=== PATIENT | female | born 1955 | race African-American/Black ===

== ENCOUNTER 2017-01-08 08:17 | Outpatient (CLI) | payer OTHER ==
--- NOTE | 2017-01-08 11:08 | Mammography Report ---
Screening mammogram: Patient with history of silicone injections into the breasts. Routine views demonstrate diffuse calcifications throughout both breasts with some nodularity in both breasts. In the posterior medial right breast there is a discrete nodular density which is questionably is noted on lateral projection at the breast level. No other significant findings. CAD used. Impression: Compromised exam due to silicone injections. Possible significant asymmetry posterior right breast. Recommendation: This patient's prior exams are being requested for comparison before final recommendations are made. Followup report will be issued. BI-RADS CATEGORY: 0 = Needs additional imaging evaluation ACR BI-RADS MAMMOGRAPHIC CODES: 0 = Needs additional imaging evaluation; 1 = Negative; 2 = Benign; 3 = Probably benign; 4 = Suspicious; 5 = Malignant; 6 = Known biopsy-proven malignancy COMMENT: 1. Dense breast tissue, i.e., adenosis, fibrocystic changes, etc., may obscure an underlying neoplasm. 2. Approximately 10% of cancers are not detected with mammography. 3. A negative mammography report should not delay biopsy if a clinically suspicious mass is present.
== END 2017-01-08 08:18 | disposition home or self-care (01) ==
LOC: MAMMO 08:17
PROVIDERS: ATTEND Family Medicine
DX: Z12.31 Encounter for screening mammogram for malignant neoplasm of breast (principal)
CPT/HCPCS: 77067; G0202

== ENCOUNTER 2017-03-14 08:22 | Outpatient (CLI) | payer OTHER ==
--- NOTE | 2017-03-14 11:04 | Mammography Report ---
Diagnostic right mammogram and targeted right breast ultrasound. History: Recall the patient has had previous bilateral silicone injections into the breast. No prior mammograms are available for comparison. Findings: Spot compression images demonstrate partial effacement of the previously noted nodular density. However, the residual density demonstrates some irregular margins. Sonographic evaluation is limited due to the silicone injections. At the 2:00 position, there is a partially visualized complex area with ill-defined margins measuring approximately 1.3 x 0.7 cm. This is the approximate location of the mammographic density. Impression: Mammographic density with indeterminate features and uncertain concordance with above described ultrasound findings which are obscured by the silicone. BI-RADS code: 4A. Recommendation: Consultation with a breast surgeon is recommended.
== END 2017-03-14 08:23 | disposition home or self-care (01) ==
LOC: MAMMO 08:22
PROVIDERS: ATTEND Family Medicine
DX: R92.1 Mammographic calcification found on diagnostic imaging of breast (principal)
CPT/HCPCS: 76642; G0206

== ENCOUNTER 2017-04-18 12:44 | Outpatient (CLI) | payer OTHER ==
--- NOTE | 2017-04-20 15:46 | Magnetic Resonance Report ---
BILATERAL BREAST MRI WITHOUT AND WITH CONTRAST: 04/18/17 CLINICAL: History of silicone injections in the breasts and a very abnormal mammogram with extensive high density silicone throughout both breasts. Ultrasound of the right breast was inconclusive. COMPARISON:01/08/17 screening mammogram and right diagnostic mammogram and right breast ultrasound 03/14/17.. TECHNIQUE: Axial 1.0-mm T1 without, axial high resolution 2.0-mm T2 and axial 1.0-mm dynamic Vibrant high-resolution postcontrast T1 fat saturation sequences on a 1.5 Temitope magnet. The examination was performed with an 8 channel dedicated [employer] breast coil. Post processing with CAD and subtraction was performed on an [employer] workstation. 12.0 cc of Multihance was injected without incident via a 22-gauge right antecubital vein INT for the contrast portion of the exam. Consent was obtained prior to the administration of the contrast. FINDINGS: Right: Moderate background parenchymal enhancement. No suspicious mass or suspicious enhancement. 2 oval nonenhancing masses a relatively central and posterior. The larger of the 2 measures 1.6 x 0.8 x 1.4 cm. Both are compatible with silicone granulomas and they correspond to mammographic masses. No suspicious right axillary or right internal mammary lymph nodes. Left: Moderate background parenchymal enhancement. No suspicious mass or suspicious enhancement. A single central posterior oval nonenhancing mass measures 1.8 x 0.9 cm, is consistent with a silicone granuloma and correlates with a large asymmetry on the mammogram. No suspicious left axillary or left internal mammary lymph nodes. IMPRESSION: No suspicious findings. Bilateral nonenhancing silicone granulomas. Recommend routine surveillance MRI rather than mammography since the sensitivity of mammography is greatly reduced due to be extent of silicone deposition in the breasts. BI-RADS 2 -- Benign
== END 2017-04-18 12:45 | disposition home or self-care (01) ==
LOC: SPVIMAG 12:44
PROVIDERS: ATTEND Surgery
DX: N64.89 Other specified disorders of breast (principal); R92.8 Other abnormal and inconclusive findings on diagnostic imaging of breast
CPT/HCPCS: A9577; C8908; 77059

== ENCOUNTER 2018-05-16 10:55 | Day surgery (SDC) | payer OTHER ==
[2018-05-16] MEDS ORDERED: NACL 0.9% 1000 ML 1,000 ML IV SCH (13:00)
--- NOTE | 2018-05-16 13:25 | Anesthesia Day of Surgery ---
Anesthesia Day of Surgery - Day of Surgery Patient Examined: Yes Patient H&P Reviewed: Yes Patient is NPO: Yes
--- NOTE | 2018-05-16 13:26 | Anesthesia Consultation ---
Anesthesia Consult and Med Hx Date of service: 05/16/18 - Airway Anesthetic Teeth Evaluation: Dentures ROM Head & Neck: Adequate Mental/Hyoid Distance: Adequate Mallampati Class: Class II Intubation Access Assessment: Probably Good - Pre-Operative Health Status ASA Pre-Surgery Classification: ASA2 Proposed Anesthetic Plan: MAC - Cardiovascular System Hx Coronary Artery Disease: Yes (high cholesterol) - Gastrointestinal Hx Gastroesophageal Reflux Disease: Yes
[2018-05-16] MEDS ORDERED: DIPRIVAN 10 MG/ML IV ONE (13:28)
--- NOTE | 2018-05-16 14:05 | Operative Report ---
Operative Report Operative Report: Date: 05/16/2018 Operative Report: Date of procedure: 05/16/2018 Procedure: Esophagogastroduodenoscopy with multiple mucosal biopsies Attending physician: Lui Pond MD Motion Picture Operator: Lui Pond MD Indication: Patient is a 62-year-old female who presented with a history of epigastric pain heartburn and indigestion with persistence of symptoms. An upper endoscopy is done to assess patient so that treatment may be directed based on the findings. Consent: Informed consent was obtained after advising the patient and family regarding nature of this procedure, its indications, potential benefits as well as possible complications including but not limited to bleeding perforation and adverse reaction to medication, infection as well as other cardiopulmonary complications. An informed written and verbal consent was then obtained after due opportunity was provided for questions and answers. Monitoring: Patient was monitored continuously with pulse oximetry and electrocardiographic recordings as well as blood pressure recordings. Vital signs remained stable throughout this procedure with no untoward events. Preoperative assessment: Patient was assessed immediately prior to this procedure for capacity to tolerate monitored anesthesia care and moderate sedation as well as general anesthesia. Patient's ASA classification is 2, Mallampati class is 2, Hyomental distance is 3. Instrument: Phyziosn video endoscope Medications: Propofol given intravenously in divided doses. For details please refer to anesthesia records. Description of procedure: Patient was placed in the left lateral decubitus position after achieving sedation, the endoscope was introduced into the esophagus under direct vision. It was then advanced beyond the esophagus into the stomach and then beyond the stomach into the duodenum and to the second portion of the duodenum. It was subsequently withdrawn with careful inspection of all mucosal surfaces with the following findings. Findings: In the esophagus, the Z line was irregular. There was a 1-2 cm sliding hiatal hernia seen on entry into the stomach. There were erosions and erythema seen in the gastric antrum. Biopsies of the antrum were obtained for histopathology. The duodenum was normal to second portion. Impression: Irregular Z line Hiatal hernia Gastric antral erosions with erythema Plan: Follow pathology report. Continue treatment with proton pump inhibitors and direct additional treatment based on the pathology report.
--- NOTE | 2018-05-16 14:06 | Discharge Summary ---
Short Stay Discharge Plan Activity: advance as tolerated Weight Bearing Status: Weight Bear as Tolerated Diet: regular Additional Instructions: Post Sedation D/C Instructions When you return home you may resume your regular diet unless otherwise directed. -Go directly home from the hospital and rest quietly. You may resume normal activities tomorrow. -Do NOT drive, return to work, operate any machinery or make any important personal or business decisions today. -Do NOT drink any alcohol or take nerve or sleeping drugs. They add to the effects of the medicine still present in your body. NO ASPIRIN OR NSAIDS(IBUPROFEN, GOODY'S , ETC) Follow up with: CHRISTIANO CARRERA MD [Primary Care Provider] - 7 Days
[2018-05-16 14:16] VITALS: BP 120/78
[2018-05-16] MEDS ORDERED: WATER FOR IRRIG STERILE IR ONE (14:56)
== END 2018-05-16 10:56 | disposition home or self-care (01) ==
LOC: GIO 10:55
PROVIDERS: ATTEND Internal Medicine Gastroenterology
DX: K29.50 Unspecified chronic gastritis without bleeding (principal); K44.9 Diaphragmatic hernia without obstruction or gangrene; K21.0 Gastro-esophageal reflux disease with esophagitis; E78.00 Pure hypercholesterolemia, unspecified; I25.10 Atherosclerotic heart disease of native coronary artery without angina pectoris; Z79.899 Other long term (current) drug therapy
CPT/HCPCS: 43239; 88305; 88342; J2704; J7030

== ENCOUNTER 2018-05-20 11:09 | Day surgery (SDC) | payer OTHER ==
[2018-05-20] MEDS ORDERED: NACL 0.9% 1000 ML 1,000 ML IV SCH (13:00)
--- NOTE | 2018-05-20 13:04 | Anesthesia Day of Surgery ---
Anesthesia Day of Surgery - Day of Surgery Patient Examined: Yes Patient H&P Reviewed: Yes Patient is NPO: Yes
--- NOTE | 2018-05-20 13:04 | Anesthesia Consultation ---
Anesthesia Consult and Med Hx Date of service: 05/20/18 - Airway ROM Head & Neck: Adequate Mental/Hyoid Distance: Adequate Mallampati Class: Class II Intubation Access Assessment: Good - Pulmonary Exam CTA: Yes - Cardiac Exam Cardiac Exam: RRR - Pre-Operative Health Status ASA Pre-Surgery Classification: ASA2 Proposed Anesthetic Plan: MAC - Cardiovascular System Hx Coronary Artery Disease: Yes (high cholesterol) Hx Valvular Heart Disease: Yes (? valvular heart disease, no abnormalities noted on auscultation) - Gastrointestinal Hx Gastroesophageal Reflux Disease: Yes
[2018-05-20] MEDS ORDERED: WATER FOR IRRIG STERILE IR ONE (14:03)
[2018-05-20] MEDS ORDERED: DIPRIVAN 10 MG/ML IV ONE ×2 (14:04)
[2018-05-20] MEDS ORDERED: WATER FOR IRRIG STERILE ONE (14:04)
--- NOTE | 2018-05-20 14:21 | Operative Report ---
Operative Report Operative Report: Date of procedure: 05/20/2018 Procedure: Colonoscopy Attending physician: Lui Pond MD Ic Design Engineer: Lui Pond MD Indication: Patient is a 62-year-old female who presents for screening colonoscopy. A colonoscopy serves to evaluate patient so that treatment may be directed based on the findings. Consent: Informed consent was obtained after advising the patient and family regarding nature of this procedure, its indications, potential benefits as well as possible complications including but not limited to bleeding perforation and adverse reaction to medication, infection as well as other cardiopulmonary complications. An informed written and verbal consent was then obtained after due opportunity was provided for questions and answers. Monitoring: Patient was monitored continuously with pulse oximetry and electrocardiographic recordings as well as blood pressure recordings. Vital signs remained stable throughout this procedure with no untoward events. Preoperative assessment: Patient was assessed immediately prior to this procedure for capacity to tolerate monitored anesthesia care and moderate sedation as well as general anesthesia. Patient's ASA classification is 2, Mallampati class is 2, Hyomental distance is 3. Instrument: Modifyn videocolonoscope. Medications: Propofol given intravenously in divided doses. For details please refer to anesthesia records. Description of procedure: Patient was placed in the left lateral decubitus position after achieving sedation, a digital rectal examination was performed following which the colonoscope was introduced into the anal verge and advanced to the cecum which was identified by the cecal valve, the appendiceal orifice, as well as by the cecal strap and direct transillumination. The colonoscope was subsequently withdrawn with careful inspection of all mucosal surfaces. Patient tolerated this procedure well and was subsequently taken to the recovery room. The following findings were noted. Findings: The entirety of the colon to the cecum was normal. On the retroflex view at the anal verge, patient had prominent large friable large internal hemorrhoids. Impression: Normal colonoscopy Prominent Internal hemorrhoids Plan: Repeat colonoscopy in 10 years High-fiber diet. Patient may benefit from hemorrhoidal band ligation in the future if she develops any symptoms
--- NOTE | 2018-05-20 14:21 | Discharge Summary ---
Short Stay Discharge Plan Activity: advance as tolerated Weight Bearing Status: Weight Bear as Tolerated Diet: regular Follow up with: CHRISTIANO CARRERA MD [Primary Care Provider] - 7 Days
--- NOTE | 2018-05-20 14:50 | Post Anesthesia Evaluation ---
- Post Anesthesia Evaluation Patient Participated: Yes Airway Patent: Yes Stable Respiratory Function: Yes Temp > 96.8F: Yes Pain Manageable: Yes Adequeate Hydration: Yes Anesthesia Complications: No
[2018-05-20 14:58] VITALS: BP 135/91
== END 2018-05-20 11:10 | disposition home or self-care (01) ==
LOC: GIO 11:09
PROVIDERS: ATTEND Internal Medicine Gastroenterology
DX: K64.8 Other hemorrhoids (principal); R10.84 Generalized abdominal pain; K21.0 Gastro-esophageal reflux disease with esophagitis; E78.00 Pure hypercholesterolemia, unspecified; I25.10 Atherosclerotic heart disease of native coronary artery without angina pectoris; Z79.899 Other long term (current) drug therapy
CPT/HCPCS: 45378; J2704

== ENCOUNTER 2019-01-16 10:43 | Day surgery (SDC) | payer OTHER ==
[~2019-01-16 10:43] MED LIST: NACL 0.9% 1000 ML 1,000 ML IV SCH
--- NOTE | 2019-01-16 13:02 | Anesthesia Consultation ---
Anesthesia Consult and Med Hx Date of service: 01/16/19 - Airway Anesthetic Teeth Evaluation: Good ROM Head & Neck: Adequate Mental/Hyoid Distance: Adequate Mallampati Class: Class II Intubation Access Assessment: Good - Pulmonary Exam CTA: Yes - Cardiac Exam Cardiac Exam: RRR - Pre-Operative Health Status ASA Pre-Surgery Classification: ASA2 Proposed Anesthetic Plan: MAC - Cardiovascular System Hx Hypertension: Yes Hx Coronary Artery Disease: Yes (high cholesterol) Hx Valvular Heart Disease: Yes (? valvular heart disease, no abnormalities noted on auscultation) - Gastrointestinal Hx Gastroesophageal Reflux Disease: Yes
--- NOTE | 2019-01-16 13:03 | Anesthesia Day of Surgery ---
Anesthesia Day of Surgery - Day of Surgery Patient Examined: Yes Patient H&P Reviewed: Yes Patient is NPO: Yes
--- NOTE | 2019-01-16 13:08 | Operative Report ---
Operative Report Operative Report: Procedure: Esophagogastroduodenoscopy with wire guided savory dilation of the esophagus, multiple mucosal biopsies. Attending physician: Lui Pond MD Molding Utility Worker: Lui Pond MD Indication: Patient is a 63 -year-old female who presents with a history of recurrent heartburn, dysphagia and indigestion. An upper endoscopy is done to assess patient, so that treatment may be directed based on the findings. Consent: Informed consent was obtained after advising the patient and family regarding nature of this procedure, its indications, potential benefits as well as possible complications including but not limited to bleeding perforation and adverse reaction to medication, infection as well as other cardiopulmonary complications. An informed written and verbal consent was then obtained after due opportunity was provided for questions and answers. Monitoring: Patient was monitored continuously with pulse oximetry and electrocardiographic recordings as well as blood pressure recordings. Vital signs remained stable throughout this procedure with no untoward events. Preoperative assessment: Patient was assessed immediately prior to this procedure for capacity to tolerate monitored anesthesia care and moderate sedation as well as general anesthesia. Patient's ASA classification is 2, Mallampati class is 2, Hyomental distance is 3. Instrument: Olympus video endoscope Wire-guided savory dilators Medications: Propofol given intravenously in divided doses. For details please refer to anesthesia records. Description of procedure: Patient was placed in the left lateral decubitus position after achieving sedation, the endoscope was introduced into the esophagus under direct vision. It was then advanced beyond the esophagus into the stomach and then beyond the stomach into the duodenum and to the second portion of the duodenum. It was subsequently withdrawn with careful inspection of all mucosal surfaces with the following findings. Findings: Patient has an irregular Z line at 37 cm. the esophagus was moderately tortuous. A guidewire was placed through the endoscope and the esophagus was dilated to 45 Fr using a savory dilator. There was erythema in the gastric antrum. Biopsies of the antrum were obtained for histopathology. The duodenum was normal to second portion. Impression:.Irregular Z line. Moderately tortuous esophagus status post wire-guided dilation Gastric antral erythema Plan: Continue treatment with proton pump inhibitors. Follow pathology report. Direct additional treatment based on the pathology report.
--- NOTE | 2019-01-16 13:09 | Discharge Summary ---
Short Stay Discharge Plan Activity: advance as tolerated Weight Bearing Status: Weight Bear as Tolerated Diet: regular Follow up with: CHRISTIANO CARRERA MD [Primary Care Provider] - 7 Days
[2019-01-16] MEDS ORDERED: DIPRIVAN 10 MG/ML IV ONE (13:12)
[2019-01-16 13:33] VITALS: BP 120/77
--- NOTE | 2019-01-16 13:34 | Post Anesthesia Evaluation ---
- Post Anesthesia Evaluation Patient Participated: Yes Airway Patent: Yes Stable Respiratory Function: Yes Nausea/Vomiting: No Temp > 96.8F: Yes Pain Manageable: Yes Adequeate Hydration: Yes Anesthesia Complications: No Block Receding Appropriately: Not Applicable Patient on Ventilator: No
== END 2019-01-16 10:44 | disposition home or self-care (01) ==
LOC: GIO 10:43
PROVIDERS: ATTEND Internal Medicine Gastroenterology
DX: K30 Functional dyspepsia (principal); K29.40 Chronic atrophic gastritis without bleeding; K21.0 Gastro-esophageal reflux disease with esophagitis; R13.10 Dysphagia, unspecified; I25.10 Atherosclerotic heart disease of native coronary artery without angina pectoris; E78.00 Pure hypercholesterolemia, unspecified; I10 Essential (primary) hypertension; Z79.899 Other long term (current) drug therapy
CPT/HCPCS: 43239; 43248; 88305; 88342; C1769; J2704; J7030